=== PATIENT | male | born 1965 | race Caucasian/White ===

== ENCOUNTER 2022-08-01 10:45 | Outpatient (REF) | payer OTHER, SELFPAY ==
[2022-08-27 08:57] LABS: Miscellaneous Test See Scanned Lab Rpt
== END 2022-08-01 10:46 | disposition home or self-care (01) ==
LOC: LAB 10:45
PROVIDERS: PCP Family Medicine; Visit Provider Pathology Anatomic Pathology & Clinical Pathology
DX: Z00.00 Encounter for general adult medical examination without abnormal findings (principal)
CPT/HCPCS: 36415